=== PATIENT | male | born 1990 | race Two or more races ===

== ENCOUNTER 2021-05-05 08:32 | Inpatient (IN) | payer OTHER ==
[~2021-05-05] VITALS: Ht 182.9 cm; Wt 100.1 kg
[2021-05-05] MEDS ORDERED: REMDESIVIR PER PHARMACY 0 ML IV SCH (09:15)
[2021-05-05] MEDS ORDERED: AZITHROMYCIN 500MG/ 250ML 250 ML IV ONE (09:15)
[2021-05-05] MEDS ORDERED: DexAMETHasone SOD PHOS 10MG/1ML VIAL INJ IV ONE (09:15)
[2021-05-05] MEDS ORDERED: cefTRIAXone 1GM/50ML D5W 50 ML IV ONE (09:15)
[2021-05-05] MEDS ORDERED: ZINC SULFATE 220mg CAP or TAB PO ONE (09:15)
[2021-05-05] MEDS ORDERED: ASCORBIC ACID 500 MG TAB PO ONE (09:15)
[2021-05-05 09:18] LABS: Basophils # (auto) 0 10 ^3/uL (0-0.2); Basophils % (auto) 0.3 % (0.0-2.0); Eosinophils # (auto) 0 10 ^3/uL (0-0.8); Hematocrit 42.6 % (41.0-53.0); Hemoglobin 15.2 g/dL (13.5-17.5); Lymphocytes # (auto) 1.1 10 ^3/uL (0.4-5.4); Lymphocytes % (auto) 9.5 % (10.0-50.0); Mean Corpuscular Hemoglobin 30.9 pg (28.0-32.0); Mean Corpuscular Hgb Conc. 35.7 g/dL (32.0-36.0); Mean Corpuscular Volume 86.7 fL (80.0-100.0); Monocytes # (auto) 0.6 10 ^3/uL (0-1.3); Monocytes % (auto) 5.4 % (0.0-12.0); Neutrophils % (auto) 84.8 % (37.0-80.0); Red Blood Cells 4.92 10^6/uL (4.5-5.90); Red Cell Distribution Width 13.1 % (11.8-14.3); White Blood Cell 11.8 10^3/uL (4.4-10.8)
[2021-05-05 09:36] LABS: Calcium 8.5 mg/dL (8.5-10.1); Potassium 3.5 mmol/L (3.5-5.1)
[2021-05-05 09:39] LABS: BUN/Creatinine Ratio 15.9
[2021-05-05] MEDS ORDERED: ACETAMINOPHEN 325 MG TAB PO ONE (10:00)
[2021-05-05] MEDS ORDERED: diphenhdrAMINE HCL 50 MG/1 ML VL IV PRN (10:30)
[2021-05-05] MEDS ORDERED: NITROGLYCERIN 0.4 MG SL TAB SL PRN (10:30)
[2021-05-05] MEDS ORDERED: MORPHINE SULFATE INJECTION 2 MG/ML SYRG IV PRN (10:30)
[2021-05-05] MEDS ORDERED: ACETAMINOPHEN 500 MG TAB PO PRN (10:45)
[2021-05-05] MEDS ORDERED: traMADol HCL 50 MG TAB PO PRN (10:45)
[2021-05-05] MEDS ORDERED: LACTULOSE 20Gm/30ML SOLN PO PRN (10:45)
[2021-05-05] MEDS ORDERED: TEMAZEPAM 15 MG CAP PO PRN (10:45)
[2021-05-05] MEDS ORDERED: PROMETHAZINE HCL 25 MG/ML 1ML IV PRN (10:45)
[2021-05-05] MEDS: SODIUM CHLORIDE 0.9% 1,000 ML IV SCH (11:06)
[2021-05-05 14:02] VITALS: BP 140/65
[2021-05-05 15:58] LABS: Urine Bacteria NONE SEEN /hpf (None Seen); Urine Blood Negative /uL (Negative); Urine Specific Gravity 1.005 (1.001-1.035); Urine WBC 1 /hpf (0 - 3)
[2021-05-05] MEDS ORDERED: REMDESIVIR 200 MG in NS 210ml LOADING DOSE ADULT IV ONE (17:30)
[2021-05-05 21:36] VITALS: BP 132/65
[2021-05-05] MEDS: FLORASTOR (S. BOULARDII) 250 MG CAP PO SCH (21:36)
[2021-05-05] MEDS: ENOXAPARIN SOD 40 MG/0.4 ML SYRINGE SC SCH (21:37)
[2021-05-05 22:09] VITALS: BP 132/65
[2021-05-05] MEDS: ALBUTEROL SULF HFA 90MCG INH 200DOSE IN PRN (22:21)
[2021-05-05] MEDS: BUDESONIDE (INHALATION) 180 MCG IH IN SCH (22:21)
[2021-05-05 23:45] VITALS: BP 148/83
[2021-05-06] VITALS (8 sets, daily range): BP systolic 122–161; BP diastolic 76–99
[2021-05-06] MEDS: SODIUM CHLORIDE 0.9% 1,000 ML IV SCH (00:05)
[2021-05-06 06:05] LABS: Basophils # (auto) 0 10 ^3/uL (0-0.2); Basophils % (auto) 0.2 % (0.0-2.0); Eosinophils # (auto) 0 10 ^3/uL (0-0.8); Hematocrit 42.5 % (41.0-53.0); Hemoglobin 14.8 g/dL (13.5-17.5); Lymphocytes # (auto) 1.2 10 ^3/uL (0.4-5.4); Lymphocytes % (auto) 8.7 % (10.0-50.0); Mean Corpuscular Hemoglobin 30.9 pg (28.0-32.0); Mean Corpuscular Hgb Conc. 34.9 g/dL (32.0-36.0); Mean Corpuscular Volume 88.5 fL (80.0-100.0); Monocytes # (auto) 0.8 10 ^3/uL (0-1.3); Monocytes % (auto) 6.1 % (0.0-12.0); Neutrophils # (auto) 11.7 10 ^3/uL (1.6-8.6); Red Cell Distribution Width 13.3 % (11.8-14.3); White Blood Cell 13.8 10^3/uL (4.4-10.8)
[2021-05-06 06:35] LABS: Albumin 2.8 g/dL (3.4-5.0); Calcium 8.6 mg/dL (8.5-10.1); Potassium 3.6 mmol/L (3.5-5.1)
[2021-05-06 06:38] LABS: BUN/Creatinine Ratio 15.4; Bilirubin, Total 0.6 mg/dL (0.2-1.0); Total Protein 7.6 g/dL (6.4-8.2)
[2021-05-06] MEDS: ALBUTEROL SULF HFA 90MCG INH 200DOSE IN PRN (07:44)
[2021-05-06] MEDS: BUDESONIDE (INHALATION) 180 MCG IH IN SCH ×2 (07:44→22:00)
[2021-05-06] MEDS: DexAMETHasone SOD PHOS 10MG/1ML VIAL INJ IV SCH (09:18)
[2021-05-06] MEDS: cefTRIAXone 1GM/50ML D5W 50 ML IV SCH (09:18)
[2021-05-06] MEDS: FLORASTOR (S. BOULARDII) 250 MG CAP PO SCH (09:19)
[2021-05-06] MEDS: CHOLECALCIFEROL (VITD3) 2,000 UNIT CAP/TAB PO SCH (09:19)
[2021-05-06] MEDS: ASCORBIC ACID 1,000 MG TAB PO SCH (09:19)
[2021-05-06] MEDS: PANTOPRAZOLE 40 MG TAB PO SCH (09:19)
[2021-05-06] MEDS: ZINC SULFATE 220mg CAP or TAB PO SCH (09:19)
[2021-05-06] MEDS: ENOXAPARIN SOD 40 MG/0.4 ML SYRINGE SC SCH ×2 (09:20→22:31)
[2021-05-06] MEDS: AZITHROMYCIN 500MG/ 250ML 250 ML IV SCH (10:44)
[2021-05-06] MEDS: REMDESIVIR 100mg 100 MG in SODIUM CHL 0.9% 230 ML IV SCH (15:44)
[2021-05-07] MEDS: ALBUTEROL SULF HFA 90MCG INH 200DOSE IN PRN ×3 (01:13→20:03)
[2021-05-07 05:00] VITALS: BP 126/87
[2021-05-07 07:18] LABS: Basophils # (auto) 0 10 ^3/uL (0-0.2); Basophils % (auto) 0.2 % (0.0-2.0); Eosinophils # (auto) 0 10 ^3/uL (0-0.8); Hemoglobin 14.7 g/dL (13.5-17.5); Lymphocytes # (auto) 1.8 10 ^3/uL (0.4-5.4); Lymphocytes % (auto) 11.9 % (10.0-50.0); Mean Corpuscular Hemoglobin 30.4 pg (28.0-32.0); Mean Corpuscular Hgb Conc. 34.2 g/dL (32.0-36.0); Mean Corpuscular Volume 88.8 fL (80.0-100.0); Monocytes # (auto) 1.2 10 ^3/uL (0-1.3); Monocytes % (auto) 7.7 % (0.0-12.0); Neutrophils # (auto) 12.3 10 ^3/uL (1.6-8.6); Neutrophils % (auto) 80.2 % (37.0-80.0); Nucleated Red Blood Cells % 0.1 %; Red Blood Cells 4.84 10^6/uL (4.5-5.90); Red Cell Distribution Width 13.2 % (11.8-14.3); White Blood Cell 15.3 10^3/uL (4.4-10.8)
[2021-05-07] MEDS: BUDESONIDE (INHALATION) 180 MCG IH IN SCH ×2 (07:21→20:04)
[2021-05-07 07:44] LABS: Albumin 2.7 g/dL (3.4-5.0); BUN/Creatinine Ratio 18.8; Bilirubin, Total 0.6 mg/dL (0.2-1.0); Calcium 8.7 mg/dL (8.5-10.1); Total Protein 7.2 g/dL (6.4-8.2)
[2021-05-07] MEDS: cefTRIAXone 1GM/50ML D5W 50 ML IV SCH (09:45)
[2021-05-07] MEDS: PANTOPRAZOLE 40 MG TAB PO SCH (09:46)
[2021-05-07] MEDS: ZINC SULFATE 220mg CAP or TAB PO SCH (09:46)
[2021-05-07] MEDS: ASCORBIC ACID 1,000 MG TAB PO SCH (09:46)
[2021-05-07] MEDS: CHOLECALCIFEROL (VITD3) 2,000 UNIT CAP/TAB PO SCH (09:46)
[2021-05-07] MEDS: DexAMETHasone SOD PHOS 10MG/1ML VIAL INJ IV SCH (09:46)
[2021-05-07] MEDS: ENOXAPARIN SOD 40 MG/0.4 ML SYRINGE SC SCH ×2 (09:47→21:59)
[2021-05-07 09:50] VITALS: BP 123/84
[2021-05-07] MEDS: AZITHROMYCIN 500MG/ 250ML 250 ML IV SCH (10:48)
[2021-05-07] MEDS ORDERED: POTASSIUM CHL 20 Meq TABLET PO ONE (11:30)
[2021-05-07] MEDS ORDERED: FUROSEMIDE 20 MG/2 ML VIAL IV ONE (11:30)
[2021-05-07 13:05] VITALS: BP 127/85
[2021-05-07] MEDS: REMDESIVIR 100mg 100 MG in SODIUM CHL 0.9% 230 ML IV SCH (16:09)
[2021-05-07 17:00] VITALS: BP 143/89
[2021-05-07 22:00] VITALS: BP 144/78
[2021-05-08] VITALS (7 sets, daily range): BP systolic 110–148; BP diastolic 74–87
[2021-05-08] MEDS: BUDESONIDE (INHALATION) 180 MCG IH IN SCH ×2 (07:02→22:00)
[2021-05-08] MEDS: ALBUTEROL SULF HFA 90MCG INH 200DOSE IN PRN ×2 (07:02→22:39)
[2021-05-08 07:15] LABS: Potassium 3.9 mmol/L (3.5-5.1)
[2021-05-08 07:19] LABS: Albumin 2.5 g/dL (3.4-5.0); BUN/Creatinine Ratio 19.4; Calcium 8.1 mg/dL (8.5-10.1)
[2021-05-08 07:22] LABS: Bilirubin, Total 0.4 mg/dL (0.2-1.0); Total Protein 6.9 g/dL (6.4-8.2)
[2021-05-08] MEDS: DexAMETHasone SOD PHOS 10MG/1ML VIAL INJ IV SCH (08:49)
[2021-05-08] MEDS: cefTRIAXone 1GM/50ML D5W 50 ML IV SCH (08:49)
[2021-05-08] MEDS: ZINC SULFATE 220mg CAP or TAB PO SCH (08:49)
[2021-05-08] MEDS: PANTOPRAZOLE 40 MG TAB PO SCH (08:49)
[2021-05-08] MEDS: ASCORBIC ACID 1,000 MG TAB PO SCH (08:50)
[2021-05-08] MEDS: ENOXAPARIN SOD 40 MG/0.4 ML SYRINGE SC SCH ×2 (08:50→22:27)
[2021-05-08] MEDS: CHOLECALCIFEROL (VITD3) 2,000 UNIT CAP/TAB PO SCH (08:50)
[2021-05-08] MEDS: AZITHROMYCIN 500MG/ 250ML 250 ML IV SCH (10:11)
[2021-05-08] MEDS: REMDESIVIR 100mg 100 MG in SODIUM CHL 0.9% 230 ML IV SCH (14:56)
[2021-05-09 05:00] VITALS: BP 126/76
[2021-05-09 06:09] LABS: Hemoglobin 14.5 g/dL (13.5-17.5); Mean Corpuscular Hemoglobin 30.8 pg (28.0-32.0); Mean Corpuscular Hgb Conc. 34.5 g/dL (32.0-36.0); Mean Corpuscular Volume 89.3 fL (80.0-100.0); Red Blood Cells 4.71 10^6/uL (4.5-5.90); Red Cell Distribution Width 13.7 % (11.8-14.3)
[2021-05-09 06:15] LABS: Band Neutrophils % (manual) 0; Basophils % (manual) 0 (0.0-2.0); Blast Cells 0; Metamyelocytes % 0; Myelocytes % 0; Promyelocytes % 0; Reactive Lymphocytes 0
[2021-05-09 06:39] LABS: Albumin 2.7 g/dL (3.4-5.0); Magnesium 2.3 mg/dL (1.6-2.6); Potassium 3.9 mmol/L (3.5-5.1)
[2021-05-09 06:49] LABS: BUN/Creatinine Ratio 17.5; Bilirubin, Direct 0.2 mg/dL (0-0.2); Bilirubin, Total 0.5 mg/dL (0.2-1.0); CRP High Sensitivity 0.73 mg/dL (< 0.3); Calcium 8.4 mg/dL (8.5-10.1); Total Protein 6.8 g/dL (6.4-8.2)
[2021-05-09 08:19] LABS: Eosinophils % (manual) 1 (0-7); Lymphocytes % (manual) 24 (10.0-50.0); Monocytes % (manual) 6 (0-12)
[2021-05-09 09:00] VITALS: BP 119/66
[2021-05-09] MEDS: cefTRIAXone 1GM/50ML D5W 50 ML IV SCH (09:02)
[2021-05-09] MEDS: DexAMETHasone SOD PHOS 10MG/1ML VIAL INJ IV SCH (09:02)
[2021-05-09] MEDS: ENOXAPARIN SOD 40 MG/0.4 ML SYRINGE SC SCH (09:03)
[2021-05-09] MEDS: ASCORBIC ACID 1,000 MG TAB PO SCH (09:03)
[2021-05-09] MEDS: ZINC SULFATE 220mg CAP or TAB PO SCH (09:03)
[2021-05-09] MEDS: CHOLECALCIFEROL (VITD3) 2,000 UNIT CAP/TAB PO SCH (09:03)
[2021-05-09] MEDS: PANTOPRAZOLE 40 MG TAB PO SCH (09:03)
[2021-05-09] MEDS: ALBUTEROL SULF HFA 90MCG INH 200DOSE IN PRN (09:29)
[2021-05-09] MEDS: BUDESONIDE (INHALATION) 180 MCG IH IN SCH (09:29)
[2021-05-09] MEDS: AZITHROMYCIN 500MG/ 250ML 250 ML IV SCH (10:28)
[2021-05-09 12:10] VITALS: BP 119/66
[2021-05-09] MEDS: REMDESIVIR 100mg 100 MG in SODIUM CHL 0.9% 230 ML IV SCH (12:58)
[2021-05-09 13:00] VITALS: BP 110/72
[2021-05-09 17:23] VITALS: BP 139/99
== END 2021-05-09 16:55 | disposition home or self-care (01) | DRG 871 ==
LOC: ER 08:32 → TELE 10:29 → TELE-EAST 20:45
PROVIDERS: ADMIT Internal Medicine; ATTEND Internal Medicine
PROC: XW033E5 Introduction of Remdesivir Anti-infective into Peripheral Vein, Percutaneous Approach, New Technology Group 5 (ICD-10-PCS; principal; 2021-05-05)
PROC: XW13325 Transfusion of Convalescent Plasma (Nonautologous) into Peripheral Vein, Percutaneous Approach, New Technology Group 5 (ICD-10-PCS; 2021-05-05)
DX: A41.89 Other specified sepsis (principal); J12.82 Pneumonia due to coronavirus disease 2019; J96.00 Acute respiratory failure, unspecified whether with hypoxia or hypercapnia; U07.1 COVID-19; E44.1 Mild protein-calorie malnutrition; D89.839 Cytokine release syndrome, grade unspecified; E66.9 Obesity, unspecified; R74.01 Elevation of levels of liver transaminase levels; Z79.82 Long term (current) use of aspirin; Z82.49 Family history of ischemic heart disease and other diseases of the circulatory system; Z68.30 Body mass index [BMI] 30.0-30.9, adult
CPT/HCPCS: 36415; 36430; 36600; 71045; 80053; 80076; 81001; 82306; 82728; 82805; 83605; 83735; 85007; 85025; 85027; 85379; 86141; 86850; 86900; 86901; 87040; 87426; 94640; 96365; 96368; G0378; J0696; J1100